=== PATIENT | male | born 1960 | race Caucasian/White ===

== ENCOUNTER 2019-12-28 12:25 | Emergency (ER) | payer MEDICARE ==
--- NOTE | 2019-12-28 12:47 | ERPHSYRPT ---
- History of Present Illness Time Seen by Provider: 12/28/19 12:47 Source: patient Exam Limitations: no limitations Patient Subjective Stated Complaint: pt co pain to left leg for a month off and on, worse in morning,pt has raised area above right ankle since yesterday, he is worried about a blood clot and has hx of dvt Triage Nursing Assessment: pt alert, walked in, resp easy, face mask in place, has discoloration to both lower legs and swelling which he states is normal Physician History: Is a 59-year-old obese white male who with a history of chronic venous stasis disease as well as history of deep venous thromboses and pulmonary emboli who presents with left lower extremity pain that has been present for approximately 3 days. Patient also has a history of peripheral vascular disease, COPD and type 2 diabetes. He is a chronic daily smoker of cigarettes. Patient is on Eliquis twice a day. Patient does not have any pain medication for this pain. Patient denies chest pain and he denies shortness of breath. She denies injury to his lower extremity on the left side. Method of Injury: other (No injury) Occurred: days ago (3) Quality: aching Severity of Pain-Max: moderate Severity of Pain-Current: moderate Modifying Factors: Improves With: movement Allergies/Adverse Reactions: No Known Drug Allergies Allergy (Verified 12/28/19 12:40) Home Medications: Albuterol Sulfate [Proair Hfa] 2 puffs IH QID 05/08/14 [History] Budesonide/Formoterol Fumarate [Symbicort 160-4.5 Mcg Inhaler] 2 puffs IH BID 05/08/14 [History] Albuterol 2.5 mg/3 ml Neb [Proventil 2.5 mg/3 ml Neb] 2.5 mg IH QIDPRN PRN 04/11/15 [History] Apixaban [Eliquis 5 mg Tablet] 5 mg PO BID 12/31/15 [History] Lacosamide [Vimpat] 100 mg PO BID 12/31/15 [History] Empagliflozin [Jardiance] 1 ea DAILY 12/28/19 [History] Famotidine [Pepcid] 1 ea DAILY 12/28/19 [History] PANTOPRAZOLE 40 mg Tablet [Protonix 40MG Tablet] 1 ea DAILY 12/28/19 [History] Rosuvastatin Calcium 1 ea DAILY 12/28/19 [History] Hx Influenza Vaccination/Date Given: No Hx Pneumococcal Vaccination/Date Given: No Immunizations Up to Date: Yes Travel Risk - International Travel Have you traveled outside of the country in past 3 weeks: No - Coronavirus Screening Are you exhibiting any of the following symptoms?: No Close contact with a COVID-19 positive Pt in past 14-21 Days: No - Review of Systems Constitutional: No Symptoms Eyes: No Symptoms Ears, Nose, & Throat: No Symptoms Respiratory: No Symptoms Cardiac: No Symptoms Abdominal/Gastrointestinal: No Symptoms Genitourinary Symptoms: No Symptoms Musculoskeletal: Other (Left lower extremity pain) Skin: Other (Pain medial aspect left lower extremity) Neurological: No Symptoms Psychological: No Symptoms Endocrine: No Symptoms Hematologic/Lymphatic: No Symptoms Immunological/Allergic: No Symptoms All Other Systems: Reviewed and Negative - Past Medical History Pertinent Past Medical History: Yes Neurological History: Seizures ENT History: No Pertinent History Cardiac History: Peripheral Vascular Disease Respiratory History: COPD Endocrine Medical History: Diabetes Type II Musculoskeletal History: Osteoarthritis GI Medical History: GERD, Hernia History: Other Psycho-Social History: No Pertinent History Male Reproductive Disorders: No Pertinent History Other Medical History: seizure disorders, coded during one seizure, blood clotting disorder - Past Surgical History Past Surgical History: Yes Neuro Surgical History: No Pertinent History Cardiac: No Pertinent History Respiratory: No Pertinent History Gastrointestinal: Hernia Repair Genitourinary: No Pertinent History Musculoskeletal: Orthopedic Surgery Male Surgical History: No Pertinent History Other Surgical History: spinal cord stimulator,simran knee surgery - arthroscopy. groin biopsy - Social History Smoking Status: Current every day smoker How long have you smoked: 20yrs Exposure to second hand smoke: Yes Drug Use: none Patient Lives Alone: No - Nursing Vital Signs Nursing Vital Signs: Pain Scale Pain Intensity 5 - Physical Exam General Appearance: mild distress, alert, anxiety, obese Eyes, Ears, Nose, Throat Exam: normal ENT inspection, moist mucous membranes Neck Exam: normal inspection, non-tender, supple, full range of motion Cardiovascular/Respiratory Exam: chest non-tender, normal breath sounds, regular rate/rhythm, heart sounds normal, no respiratory distress Gastrointestinal/Abdominal Exam: non-tender Back Exam: normal inspection, normal range of motion, No CVA tenderness, No vertebral tenderness Hips Exam: bilateral: non-tender, normal inspection, normal range of motion, no evidence of injury Legs Exam: right leg: non-tender, normal inspection, left leg: soft tissue tenderness (Patient has chronic venous stasis disease without ulceration. It is in the medial aspect of his left leg.), bilateral leg: normal range of motion, no evidence of injury Knees Exam: bilateral knee: non-tender, normal inspection, normal range of motion, no evidence of injury Ankle Exam: right ankle: normal range of motion, bilateral ankle: non-tender, normal inspection, no evidence of injury Foot Exam: bilateral foot: non-tender, normal inspection, normal range of motion, no evidence of injury Neuro/Tendon Exam: normal sensation, normal motor functions, normal tendon functions Mental Status Exam: alert, oriented x 3, cooperative Skin Exam: other (Chronic venous stasis disease skin changes bilateral lower extremities) SpO2 Interpretation: normal O2 Delivery: Room Air - Course Nursing assessment & vital signs reviewed: Yes Ordered Tests: Active Orders 24 hr Category Date Time Status VENOUS UNILAT/LIMITED EXTREMIT [US] Stat Exams 12/28/19 12:55 Completed - Progress Progress: unchanged, pain not gone completely, re-examined Counseled pt/family regarding: diagnosis, need for follow-up, rad results - Departure Departure Disposition: Home Clinical Impression: Pain in left lower leg Condition: Stable Critical Care Time: No Referrals: JERI HERNANDEZ [NON-STAFF PHY W/O PRIVILEGES] - Additional Instructions: Follow up with primary doctor for further management. take your medications as prescribed. Prescriptions: Hydrocodone/APAP 5/325 [[place] 5/325 mg] 1 each PO Q8H PRN PRN #6 tablet MDD 3 PRN Reason: Pain
--- NOTE | 2019-12-28 13:47 | XRAY ---
Indication: Left lower leg pain. Two-dimensional sonogram and color Doppler imaging of the major venous vessels of the left leg was performed. Comparison: November 29, 2015. Again no thrombus seen in the examined deep venous vessels of the left leg including greater saphenous vein. Veins demonstrate normal compressibility. Venous waveforms are normal with and without augmentation. Images of the calf demonstrates mild subcutaneous venous varicosities. Impression: Left leg remains negative for DVT. Superficial venous varicosities at the level of the calf.
[2019-12-28 14:27] VITALS: BP 95/58; PULSE 86; O2SAT 98
== END 2019-12-28 14:37 | disposition home or self-care (01) ==
LOC: ED 12:25
DX: M79.662 Pain in left lower leg (principal); I87.8 Other specified disorders of veins; Z86.718 Personal history of other venous thrombosis and embolism; Z86.711 Personal history of pulmonary embolism; Z79.01 Long term (current) use of anticoagulants; I73.9 Peripheral vascular disease, unspecified; J44.9 Chronic obstructive pulmonary disease, unspecified; E11.9 Type 2 diabetes mellitus without complications
CPT/HCPCS: 93971; 99283

== ENCOUNTER 2020-08-04 04:17 | Emergency (ER) | payer MEDICARE ==
[2020-08-04] MEDS ORDERED: NORCO 5/325 MG PO ONE (04:41)
[2020-08-04] MEDS ORDERED: Cyclobenzaprine 10 MG PO ONE (04:42)
[2020-08-04 04:43] VITALS: O2SAT 95
[2020-08-04] MEDS ORDERED: Cyclobenzaprine 10 MG ONE (04:45)
[2020-08-04] MEDS ORDERED: NORCO 5/325 MG ONE (04:46)
--- NOTE | 2020-08-04 05:00 | ERPHSYRPT ---
- History of Present Illness Time Seen by Provider: 08/04/20 04:41 Patient Subjective Stated Complaint: "I have a rash on my leg. It hurts!" Triage Nursing Assessment: Patient reported a four day onset of a "rash" to the lower medial aspect of the left leg. Reported worsening pain as the cause of seeking care. Denied recent injuries to the area. Denied noticing and drainage from the area. Pain described as sharp/stabbing and non-radiating without alleviating factors. Pupils 3mm. Peripheral pulses +2 bilateral. Lower extremities with significant skin changes. pedal pulses +2 bilateral. Area in questions in superior to the left medial malleolus. Non-weeping wound with slightly blanching center. [place] wound bed noted. Physician History: Patient is here with left lower leg wound. Appears to be venous stasis bilaterally. Left greater than worse. Has been going on for 2 to 3 days. States it was affecting his sleep. Allergies/Adverse Reactions: No Known Drug Allergies Allergy (Verified 08/04/20 04:23) Home Medications: Albuterol Sulfate [Proair Hfa] 2 puffs IH QID 05/08/14 [History] Budesonide/Formoterol Fumarate [Symbicort 160-4.5 Mcg Inhaler] 2 puffs IH BID 05/08/14 [History] Albuterol 2.5 mg/3 ml Neb [Proventil 2.5 mg/3 ml Neb] 2.5 mg IH QIDPRN PRN 04/11/15 [History] Apixaban [Eliquis 5 mg Tablet] 5 mg PO BID 12/31/15 [History] Lacosamide [Vimpat] 100 mg PO BID 12/31/15 [History] Empagliflozin [Jardiance] 1 ea DAILY 12/28/19 [History] Famotidine [Pepcid] 1 ea DAILY 12/28/19 [History] PANTOPRAZOLE 40 mg Tablet [Protonix 40MG Tablet] 1 ea DAILY 12/28/19 [History] Rosuvastatin Calcium 1 ea DAILY 12/28/19 [History] Hx Tetanus, Diphtheria Vaccination/Date Given: No Hx Influenza Vaccination/Date Given: No Hx Pneumococcal Vaccination/Date Given: No Travel Risk - International Travel Have you traveled outside of the country in past 3 weeks: No - Coronavirus Screening Are you exhibiting any of the following symptoms?: No Close contact with a COVID-19 positive Pt in past 14-21 Days: No - Vaccine Status Have you recieved a Covid-19 vaccination: No - Review of Systems Constitutional: No Fever, No Chills Eyes: No Symptoms Ears, Nose, & Throat: No Symptoms Respiratory: No Cough, No Dyspnea Cardiac: No Chest Pain, No Edema, No Syncope Abdominal/Gastrointestinal: No Abdominal Pain, No Nausea, No Vomiting, No Diarrhea Genitourinary Symptoms: No Dysuria Musculoskeletal: Other (Left lower leg wound.), No Back Pain, No Neck Pain Skin: No Rash Neurological: No Dizziness, No Focal Weakness, No Sensory Changes Psychological: No Symptoms Endocrine: No Symptoms All Other Systems: Reviewed and Negative - Past Medical History Pertinent Past Medical History: Yes Neurological History: Seizures ENT History: No Pertinent History Cardiac History: Peripheral Vascular Disease Respiratory History: COPD Endocrine Medical History: Diabetes Type II Musculoskeletal History: Osteoarthritis GI Medical History: GERD, Hernia History: Other Psycho-Social History: No Pertinent History Male Reproductive Disorders: No Pertinent History Other Medical History: seizure disorders, coded during one seizure, blood clotting disorder - Past Surgical History Past Surgical History: Yes Neuro Surgical History: No Pertinent History Cardiac: No Pertinent History Respiratory: No Pertinent History Gastrointestinal: Hernia Repair Genitourinary: No Pertinent History Musculoskeletal: Orthopedic Surgery Male Surgical History: No Pertinent History Other Surgical History: spinal cord stimulator,simran knee surgery - arthroscopy. groin biopsy - Social History Smoking Status: Current every day smoker How long have you smoked: 20yrs Exposure to second hand smoke: Yes Drug Use: none Patient Lives Alone: No - Nursing Vital Signs Nursing Vital Signs: Initial Vital Signs Temperature 98.4 F 08/04/20 04:17 Pulse Rate 78 08/04/20 04:17 Respiratory Rate 16 08/04/20 04:17 Blood Pressure 123/87 08/04/20 04:17 O2 Sat by Pulse Oximetry 95 08/04/20 04:17 Pain Scale Pain Intensity 10 - Physical Exam General Appearance: no apparent distress, alert Eye Exam: PERRL/EOMI, eyes nml inspection Ears, Nose, Throat Exam: normal ENT inspection, TMs normal, pharynx normal, moist mucous membranes Neck Exam: normal inspection, non-tender, supple, full range of motion Respiratory Exam: normal breath sounds, lungs clear, No respiratory distress Cardiovascular Exam: regular rate/rhythm, normal heart sounds, normal peripheral pulses Gastrointestinal/Abdomen Exam: soft, normal bowel sounds, No tenderness, No mass Back Exam: normal inspection, normal range of motion, No CVA tenderness, No vertebral tenderness Extremity Exam: normal inspection, normal range of motion, pelvis stable Neurologic Exam: alert, oriented x 3, cooperative, normal mood/affect, nml cerebellar function, nml station & gait, sensation nml, No motor deficits Skin Exam: normal color, warm, dry, No rash Lymphatic Exam: No adenopathy SpO2 Interpretation: normal SpO2: 95 Comments: 08/04/20 04:58 No obvious deformity, sensation intact, 2+ capillary refill, 2 point tactile discrimination intact. 5 out of 5 strength. Full range of motion without pain. Compartments are soft, nontender. Overlying skin shows no tenting, bruising, ecchymosis. Left lower leg venous stasis. Left worse than right. However it is bilateral. No obvious signs of infection. No signs of DVT. - Course Nursing assessment & vital signs reviewed: Yes Ordered Tests: Medication Summary Discontinued Medications Generic Name Dose Route Start Last Admin Trade Name Freq PRN Reason Stop Dose Admin Hydrocodone Bitart/Acetaminophen 2 tab 08/04/20 04:41 08/04/20 04:47 [place] 5/325 Mg PO 08/04/20 04:42 2 tab STAT ONE Administration Hydrocodone Bitart/Acetaminophen Confirm 08/04/20 04:46 [place] 5/325 Mg Administered 08/04/20 04:47 Dose 2 tab .ROUTE .STK-MED ONE Cyclobenzaprine HCl 10 mg 08/04/20 04:42 08/04/20 04:47 Cyclobenzaprine 10 Mg PO 08/04/20 04:43 10 mg STAT ONE Administration Cyclobenzaprine HCl Confirm 08/04/20 04:45 Cyclobenzaprine 10 Mg Administered 08/04/20 04:46 Dose 10 mg .ROUTE .STK-MED ONE - Progress Progress: improved Progress Note: 08/04/20 04:59 Patient does appear in pain today. Will give a oral [place], Flexeril here. Patient will need close follow-up with his PCP and podiatry. He was given follow-up with Dr. Calderon of podiatry. He feels improved with the pain medication here. No signs of infection at this point time. He should have continued tight control of his glucose. Counseled pt/family regarding: diagnosis, need for follow-up - Departure Departure Disposition: Home Clinical Impression: Venous stasis dermatitis of both lower extremities Condition: Stable Critical Care Time: No Referrals: ALIVIA DAVALOS [Primary Care Provider] - Instructions: Wound Care (DC) Additional Instructions: take home pain medications: tylenol and flexeril. Follow up with Dr. Claderon this next week for close reexam. Return for fever, chills, chest pain, vomiting, or any other new or different symptoms Prescriptions: Cyclobenzaprine HCl 10 mg [Flexeril 10 MG] 10 mg PO TID #12 tablet
[2020-08-04 05:41] VITALS: BP 140/82; PULSE 89
== END 2020-08-04 05:00 | disposition home or self-care (01) ==
LOC: ED 04:17
DX: I87.8 Other specified disorders of veins (principal); L30.9 Dermatitis, unspecified
CPT/HCPCS: 99283; A9270-GY

== ENCOUNTER 2020-12-20 15:41 | Emergency (ER) | payer MEDICARE ==
--- NOTE | 2020-12-20 16:01 | ERPHSYRPT ---
- History of Present Illness Time Seen by Provider: 12/20/20 16:01 Historian: patient Exam Limitations: no limitations Patient Subjective Stated Complaint: PT states "I have the most horrible heartburn I have ever had. My right chest and shoulder and back hurt really bad." Triage Nursing Assessment: Pt presented alert and oriented X 3, skin pwd Pt ambulates with an upright steady gait, able to speak in clear full sentences. Pt resting comfortably on the bed. Timing/Duration: today Activities at Onset: none Quality: burning Location: substernal Chest Pain Radiation: no radiation Severity of Pain-Max: moderate Severity of Pain-Current: moderate Modifying Factors: Improves With: nothing Associated Symptoms: denies symptoms Prior Chest Pain/Cardiac Workup: no prior chest pain Nitro Today/Relief: no nitro taken today Aspirin Treatment Today: no aspirin today Allergies/Adverse Reactions: No Known Drug Allergies Allergy (Verified 08/04/20 04:23) Home Medications: Albuterol Sulfate [Proair Hfa] 2 puffs IH QID 05/08/14 [History] Budesonide/Formoterol Fumarate [Symbicort 160-4.5 Mcg Inhaler] 2 puffs IH BID 05/08/14 [History] Albuterol 2.5 mg/3 ml Neb [Proventil 2.5 mg/3 ml Neb] 2.5 mg IH QIDPRN PRN 04/11/15 [History] Apixaban [Eliquis 5 mg Tablet] 5 mg PO BID 12/31/15 [History] Lacosamide [Vimpat] 100 mg PO BID 12/31/15 [History] Empagliflozin [Jardiance] 1 ea DAILY 12/28/19 [History] Famotidine [Pepcid] 1 ea DAILY 12/28/19 [History] PANTOPRAZOLE 40 mg Tablet [Protonix 40MG Tablet] 1 ea DAILY 12/28/19 [History] Rosuvastatin Calcium 1 ea DAILY 12/28/19 [History] Hx Tetanus, Diphtheria Vaccination/Date Given: No Hx Influenza Vaccination/Date Given: No Hx Pneumococcal Vaccination/Date Given: No Immunizations Up to Date: Yes Travel Risk - International Travel Have you traveled outside of the country in past 3 weeks: No - Coronavirus Screening Are you exhibiting any of the following symptoms?: No Close contact with a COVID-19 positive Pt in past 14-21 Days: No - Vaccine Status Have you recieved a Covid-19 vaccination: Yes [employer]: Moderna - Vaccination Dates Date of 2cond Vaccination (if applicable): 09/2020 - Review of Systems Constitutional: No Symptoms Eyes: No Symptoms Ears, Nose, & Throat: No Symptoms Respiratory: No Symptoms Cardiac: Chest Pain (GERD type) Abdominal/Gastrointestinal: Other (GERD) Genitourinary Symptoms: No Symptoms Musculoskeletal: No Symptoms Skin: No Symptoms Neurological: No Symptoms Psychological: No Symptoms Endocrine: No Symptoms Hematologic/Lymphatic: No Symptoms Immunological/Allergic: No Symptoms All Other Systems: Reviewed and Negative - Past Medical History Pertinent Past Medical History: Yes Neurological History: Seizures ENT History: No Pertinent History Cardiac History: Peripheral Vascular Disease Respiratory History: COPD Endocrine Medical History: Diabetes Type II Musculoskeletal History: Osteoarthritis GI Medical History: GERD, Hernia History: Other Psycho-Social History: No Pertinent History Male Reproductive Disorders: No Pertinent History Other Medical History: seizure disorders, coded during one seizure, blood clotting disorder - Past Surgical History Past Surgical History: Yes Neuro Surgical History: No Pertinent History Cardiac: No Pertinent History Respiratory: No Pertinent History Gastrointestinal: Hernia Repair Genitourinary: No Pertinent History Musculoskeletal: Orthopedic Surgery Male Surgical History: No Pertinent History Other Surgical History: spinal cord stimulator,simran knee surgery - arthroscopy. groin biopsy - Social History Smoking Status: Current every day smoker How long have you smoked: years Exposure to second hand smoke: Yes Drug Use: none Patient Lives Alone: No - Nursing Vital Signs Nursing Vital Signs: Initial Vital Signs Temperature 98.2 F 12/20/20 15:54 Pulse Rate 80 12/20/20 15:54 Respiratory Rate 20 12/20/20 15:54 Blood Pressure 107/83 12/20/20 15:54 O2 Sat by Pulse Oximetry 95 12/20/20 15:54 Pain Scale Pain Intensity 2 - Physical Exam General Appearance: no apparent distress, obese Eye Exam: PERRL/EOMI Ears, Nose, Throat Exam: normal ENT inspection Neck Exam: normal inspection, non-tender Respiratory Exam: normal breath sounds, airway intact Cardiovascular Exam: regular rate/rhythm, normal heart sounds Gastrointestinal/Abdomen Exam: soft, normal bowel sounds Rectal Exam: deferred Back Exam: normal inspection Extremity Exam: normal inspection Neurologic Exam: alert, oriented x 3, cooperative Skin Exam: normal color, warm SpO2 Interpretation: normal SpO2: 95 O2 Delivery: Room Air - Course EKG Interpreted by Me: RATE (82), Sinus Rhythm, NORMAL AXIS, NORMAL INTERVALS, NORMAL QRS, NORMAL ST-T - Radiology Exams Chest X-ray Interpretation: Interpreted by me, Negative Lab/Rad Data: Laboratory Result Diagrams 12/20/20 16:40 12/20/20 16:40 Laboratory Results 12/20/20 12/20/20 12/20/20 Range/Units 19:08 16:40 16:40 WBC (4.0-10.5) K/mm3 RBC (4.1-5.6) M/mm3 Hgb (12.5-18.0) gm/dl Hct (42-50) % MCV (78-100) fl MCH (26-32) pg MCHC (32-36) g/dl RDW (11.5-14.0) % Plt Count (150-450) K/mm3 MPV (7.5-11.0) fl Sodium 136 L (137-145) mmol/L Potassium 3.6 (3.5-5.1) mmol/L Chloride 100 (98-107) mmol/L Carbon Dioxide 25 (22-30) mmol/L Anion Gap 14.4 (5-15) MEQ/L BUN 13 (9-20) mg/dL Creatinine 0.82 (0.66-1.25) mg/dL Estimated GFR > 60.0 ML/MIN Glucose 158 H (74-106) mg/dL Calcium 9.2 (8.4-10.2) mg/dL Total Bilirubin 0.70 (0.2-1.3) mg/dL AST 23 (17-59) U/L ALT 15 (0-50) U/L Alkaline Phosphatase 92 (38-126) U/L Troponin I < 0.012 < 0.012 (0.000-0.034) ng/mL Serum Total Protein 7.2 (6.3-8.2) g/dL Albumin 4.0 (3.5-5.0) g/dL 12/20/20 Range/Units 16:40 WBC 8.9 (4.0-10.5) K/mm3 RBC 4.31 (4.1-5.6) M/mm3 Hgb 14.3 (12.5-18.0) gm/dl Hct 43.7 (42-50) % MCV 101.4 H (78-100) fl MCH 33.2 H (26-32) pg MCHC 32.7 (32-36) g/dl RDW 14.9 H (11.5-14.0) % Plt Count 222 (150-450) K/mm3 MPV 10.3 (7.5-11.0) fl Sodium (137-145) mmol/L Potassium (3.5-5.1) mmol/L Chloride (98-107) mmol/L Carbon Dioxide (22-30) mmol/L Anion Gap (5-15) MEQ/L BUN (9-20) mg/dL Creatinine (0.66-1.25) mg/dL Estimated GFR ML/MIN Glucose (74-106) mg/dL Calcium (8.4-10.2) mg/dL Total Bilirubin (0.2-1.3) mg/dL AST (17-59) U/L ALT (0-50) U/L Alkaline Phosphatase (38-126) U/L Troponin I (0.000-0.034) ng/mL Serum Total Protein (6.3-8.2) g/dL Albumin (3.5-5.0) g/dL - Progress Progress: improved Air Movement: good Progress Note: 12/26/20 16:04 GI cocktail helped. All pain gone Blood Culture(s) Obtained: No Antibiotics given: No Counseled pt/family regarding: lab results, diagnosis, need for follow-up, rad results - Departure Departure Disposition: Home Clinical Impression: Chronic GERD Condition: Stable Critical Care Time: No Referrals: ALIVIA DAVALOS [Primary Care Provider] - Additional Instructions: Antacids, see PCP
--- NOTE | 2020-12-20 16:41 | XRAY ---
Indication: Chest pain. Comparison: March 01, 2015. Portable chest is now clear. Heart not enlarged. Bony thorax intact again with epidural leads terminating T7. No new/acute findings.
[2020-12-20 17:04] LABS: Hematocrit 43.7 % (42-50); Hemoglobin 14.3 gm/dl (12.5-18.0); Mean Cell Volume 101.4 fl (78-100); Mean Corpuscular Hemoglobin 33.2 pg (26-32); Mean Corpuscular Hgb Concent. 32.7 g/dl (32-36); Mean Platelet Volume 10.3 fl (7.5-11.0); Platelet Count 222 K/mm3 (150-450); Red Blood Count 4.31 M/mm3 (4.1-5.6); Red Cell Distribution Width 14.9 % (11.5-14.0); White Blood Count 8.9 K/mm3 (4.0-10.5)
[2020-12-20 17:09] LABS: ALKALINE PHOSPHATASE 92 U/L (38-126); ANION GAP 14.4 MEQ/L (5-15); BLOOD UREA NITROGEN 13 mg/dL (9-20); CHLORIDE 100 mmol/L (98-107); Calcium 9.2 mg/dL (8.4-10.2); Carbon Dioxide 25 mmol/L (22-30); Creatinine 1 0.82 mg/dL (0.66-1.25); EST GLOMERULAR FILTRATION RATE > 60.0 ML/MIN; Glucose 158 mg/dL (74-106); Potassium 3.6 mmol/L (3.5-5.1); SGOT/AST 23 U/L (17-59); SGPT/ALT 15 U/L (0-50); SODIUM 136 mmol/L (137-145); Total Protein 7.2 g/dL (6.3-8.2)
[2020-12-20 18:23] VITALS: BP 110/66; PULSE 64
[2020-12-26 16:06] VITALS: O2SAT 95
== END 2020-12-21 07:43 | disposition home or self-care (01) ==
LOC: ED 15:41
DX: K21.9 Gastro-esophageal reflux disease without esophagitis (principal); Z79.899 Other long term (current) drug therapy; Z79.01 Long term (current) use of anticoagulants; R07.9 Chest pain, unspecified; E11.9 Type 2 diabetes mellitus without complications; J44.9 Chronic obstructive pulmonary disease, unspecified
CPT/HCPCS: 36000; 36415; 71045; 80053; 84484; 85027; 93005; 99284

== ENCOUNTER 2021-02-02 06:35 | Emergency (ER) | payer MEDICARE ==
[2021-02-02 06:54] VITALS: BP 129/85; PULSE 67; O2SAT 98
--- NOTE | 2021-02-02 07:21 | ERPHSYRPT ---
- History of Present Illness Time Seen by Provider: 02/02/21 07:00 Source: patient Exam Limitations: no limitations Patient Subjective Stated Complaint: "I have a rash." Triage Nursing Assessment: patient reported three day onset of rash to the left knee and bilateral forearms. He denied any new washes, detergent, or medications. Patient reported that he contacted his PCP Dr. Davalos who could not see him until . patient reported Dr. Davalos told him to go to the ER if he needed seen. Denied pain. Reported itching without exudate. The patient is very disheveled. Skin is dirty/warm/dry with macular rash distributed on the anterior aspect of the bilateral forearms, posterior hands, and anterior left knee. No noted exudate, erythema, or edema. Physician History: This a 60-year-old obese white male has a history of chronic venous stasis disease, diabetes, peripheral vascular disease and presents with a 3-day history of skin rash of his bilateral lower extremities and bilateral upper extremities. It itches and he has been scratching. Patient is taking Pepcid already. Patient denies any new exposures. Timing/Duration: day(s) (3) Quality: itchy Severity: mild (Moderate) Location: extremities (Bilateral upper and lower extremities) Possible Causes: other (Dry skin) Modifying Factors: Improves With: scratching Associated Symptoms: denies symptoms Allergies/Adverse Reactions: No Known Drug Allergies Allergy (Verified 02/02/21 06:39) Home Medications: Albuterol Sulfate [Proair Hfa] 2 puffs IH QID 05/08/14 [History] Budesonide/Formoterol Fumarate [Symbicort 160-4.5 Mcg Inhaler] 2 puffs IH BID 05/08/14 [History] Albuterol 2.5 mg/3 ml Neb [Proventil 2.5 mg/3 ml Neb] 2.5 mg IH QIDPRN PRN 04/11/15 [History] Apixaban [Eliquis 5 mg Tablet] 5 mg PO BID 12/31/15 [History] Lacosamide [Vimpat] 100 mg PO BID 12/31/15 [History] Empagliflozin [Jardiance] 1 ea DAILY 12/28/19 [History] Famotidine [Pepcid] 1 ea DAILY 12/28/19 [History] PANTOPRAZOLE 40 mg Tablet [Protonix 40MG Tablet] 1 ea DAILY 12/28/19 [History] Rosuvastatin Calcium 1 ea DAILY 12/28/19 [History] Hx Tetanus, Diphtheria Vaccination/Date Given: Yes Hx Influenza Vaccination/Date Given: Yes Hx Pneumococcal Vaccination/Date Given: No Travel Risk - International Travel Have you traveled outside of the country in past 3 weeks: No - Coronavirus Screening Are you exhibiting any of the following symptoms?: No Close contact with a COVID-19 positive Pt in past 14-21 Days: No - Vaccine Status Have you recieved a Covid-19 vaccination: Yes Law Clerk: Moderna - Vaccination Dates Date of 2cond Vaccination (if applicable): september - Review of Systems Constitutional: No Symptoms Eyes: No Symptoms Ears, Nose, & Throat: No Symptoms Respiratory: No Symptoms Cardiac: No Symptoms Abdominal/Gastrointestinal: No Symptoms Genitourinary Symptoms: No Symptoms Musculoskeletal: No Symptoms Skin: Rash (Bilateral upper extremities and bilateral lower extremities) Neurological: No Symptoms Psychological: No Symptoms Endocrine: No Symptoms Hematologic/Lymphatic: No Symptoms Immunological/Allergic: No Symptoms All Other Systems: Reviewed and Negative - Past Medical History Pertinent Past Medical History: Yes Neurological History: Seizures ENT History: No Pertinent History Cardiac History: Peripheral Vascular Disease Respiratory History: COPD Endocrine Medical History: Diabetes Type II Musculoskeletal History: Osteoarthritis GI Medical History: GERD, Hernia History: Other Psycho-Social History: No Pertinent History Male Reproductive Disorders: No Pertinent History Other Medical History: seizure disorders, coded during one seizure, blood clotting disorder - Past Surgical History Past Surgical History: Yes Neuro Surgical History: No Pertinent History Cardiac: No Pertinent History Respiratory: No Pertinent History Gastrointestinal: Hernia Repair Genitourinary: No Pertinent History Musculoskeletal: Orthopedic Surgery Male Surgical History: No Pertinent History Other Surgical History: spinal cord stimulator,simran knee surgery - arthroscopy. groin biopsy - Social History Smoking Status: Current every day smoker How long have you smoked: years Exposure to second hand smoke: Yes Drug Use: none Patient Lives Alone: No - Nursing Vital Signs Nursing Vital Signs: Initial Vital Signs Temperature 98.6 F 02/02/21 06:36 Pulse Rate 67 02/02/21 06:36 Respiratory Rate 18 02/02/21 06:36 Blood Pressure 129/85 02/02/21 06:36 O2 Sat by Pulse Oximetry 98 02/02/21 06:36 Pain Scale Pain Intensity 0 - Physical Exam General Appearance: no apparent distress, alert, anxiety, obese Eye Exam: PERRL/EOMI, eyes nml inspection Ears, Nose, Throat Exam: normal ENT inspection, moist mucous membranes Neck Exam: normal inspection, non-tender, supple, full range of motion Respiratory Exam: No chest tenderness, No respiratory distress Gastrointestinal/Abdomen Exam: No tenderness Rectal Exam: not done Back Exam: normal inspection, normal range of motion, No CVA tenderness, No vertebral tenderness Extremity Exam: other (Dry skin bilateral upper extremities and bilateral lower extremities. Patient has significant chronic venous stasis disease bilateral lower extremities. There is punctate rash bilateral upper extremities and bilateral lower extremities. No cellulitis or evidence of infection present.) Neurologic Exam: alert, oriented x 3, cooperative, group art supervisor II-XII nml as tested, normal mood/affect, nml cerebellar function, nml station & gait, sensation nml Skin Exam: dry, rash (See above extremity exam) Lymphatic Exam: No adenopathy SpO2 Interpretation: normal SpO2: 98 O2 Delivery: Room Air - Course Nursing assessment & vital signs reviewed: Yes - Progress Progress: unchanged Counseled pt/family regarding: diagnosis, need for follow-up - Departure Departure Disposition: Home Clinical Impression: Dermatitis Condition: Stable Critical Care Time: No Referrals: ALIVIA DAVALOS [Primary Care Provider] - Additional Instructions: Keep your skin of your bilateral upper and lower extremities moist with uns cented skin moisturizer. Continue taking your famotidine (Pepcid). Add Benadryl 25 mg orally 4 times a day for the next 4 days. Monitor your blood sugar and treat accordingly while taking your prednisone. Follow-up with your primary care physician for further management. Prescriptions: Prednisone 10 mg [Deltasone 10 mg] 10 mg PO TID #12 tablet
== END 2021-02-02 07:32 | disposition home or self-care (01) ==
LOC: ED 06:35
DX: L30.9 Dermatitis, unspecified (principal); E11.9 Type 2 diabetes mellitus without complications; D68.9 Coagulation defect, unspecified; J44.9 Chronic obstructive pulmonary disease, unspecified
CPT/HCPCS: 99283

== ENCOUNTER 2021-05-20 10:28 | Day surgery (SDC) | payer MEDICARE ==
--- NOTE | 2021-05-20 08:24 | HP ---
DATE OF SURGERY: 05/20/2021 HISTORY OF PRESENT ILLNESS: The patient is a 60-year-old who has a new hernia superior to the past hernia repair in the past. He has some incarcerated fat or preperitoneal fat. He is in need of repair. PAST MEDICAL HISTORY: Obesity. Seizure disorder. Arthritis. Chronic obstructive pulmonary disease. He had deep vein thrombosis in the past. Ventral hernia, superior hernia with omentum as well as a piece of nonobstructed transverse colon. PAST SURGICAL HISTORY: Previous repair of incarcerated ventral hernia five or six years ago. Hernia surgery and knee surgery in the past. Spine surgery. Benign lymph node removed in the past. MEDICATIONS: The last list of medications that the patient provided is: ProAir, Symbicort, Albuterol, Eliquis, morphine, furosemide, Keppra in the past. ALLERGIES: NKDA. FAMILY HISTORY: Lung cancer. Breast cancer. Leukemia. SOCIAL HISTORY: Former smoker, no current smoking. No alcohol abuse. REVIEW OF SYSTEMS: Fourteen systems reviewed per above. PHYSICAL EXAMINATION: GENERAL: No acute distress. HEENT: Sclerae nonicteric. NECK: No JVD. CHEST: Equal excursion, nonlabored breathing. CVS: Regular rate and rhythm. ABDOMEN: Soft, obese. He has a hernia above his prior repair that seems to be intact. Likely some incarcerated omentum or preperitoneal fat. No peritoneal signs. EXTREMITIES: No significant edema. NEURO: Alert, oriented, moving extremities symmetrically. PSYCH: Appropriate mood and affect. IMPRESSION: Incarcerated ventral hernia. The patient would benefit from repair. I recommend trying laparoscopic repair of incarcerated ventral hernia with mesh, possible open. General risk of bleeding or infection, risk of trocar injury or hernia, risk of bowel, bladder, blood vessel injury, risk of adhesion, scar formation or ileus. General risk of aches, pains, burning or numbness possible penitentiary or chronic in nature. Overall risk of hernia recurrence, risk of mesh infection possibly requiring removal, risk of hematoma or seroma formation, risk of mesh fracture or failure possibly creating issue with the viscera or other structures possibly requiring other procedures. General risk of anesthesia, deep venous thrombosis, pulmonary embolism, pneumonia, risk of cardiopulmonary event given his comorbidities. He understands and agrees to the planned procedure, will proceed with outpatient laparoscopic repair of incarcerated ventral hernia with mesh possible open.
[~2021-05-20 10:28] MED LIST: CEFAZOLIN 2 GM-D5W BAG** 2 GM/50 ML ML IV ONE; CEFAZOLIN 2 GM-D5W BAG** 2 GM/50 ML ML IV SCH; Lactated Ringers 1,000 ML IV ONE; Lactated Ringers 1,000 ML IV SCH; Sensorcaine 0.25% 10 ML ONE
[2021-05-20] MEDS ORDERED: Versed 2 MG/2 ML Injection IV PRN (11:27)
[2021-05-20] MEDS ORDERED: Reglan 10 MG/2 ML IV ONE (11:27)
[2021-05-20] MEDS ORDERED: Versed 2 MG/2 ML Injection ONE (11:32)
[2021-05-20] MEDS ORDERED: Reglan 10 MG/2 ML ONE (11:32)
[2021-05-20] MEDS ORDERED: DIPRIVAN 200 MG/20 ML IV ONE ×2 (11:39→14:18)
[2021-05-20] MEDS ORDERED: Zofran 4 MG/2 ML VIAL ONE (11:39)
[2021-05-20] MEDS ORDERED: Zemuron 100 MG/10 ML ONE (11:39)
[2021-05-20] MEDS ORDERED: Quelicin Fliptop 200 MG/10 ML ONE (11:39)
[2021-05-20] MEDS ORDERED: Decadron 4 MG INJ ONE (11:39)
[2021-05-20] MEDS ORDERED: Xylocaine-Mpf 2% 5 Ml Vial ONE (11:39)
[2021-05-20] MEDS ORDERED: Naropin 0.5% 30 ML VIAL ONE (11:47)
[2021-05-20] MEDS ORDERED: SUBLIMAZE 100 MCG/2 ML ONE ×3 (11:47→14:56)
[2021-05-20] MEDS ORDERED: EPINEPHRINE 1MG/ML AMP ONE (11:48)
[2021-05-20] MEDS ORDERED: Pre-Attached Lta Kit TP ONE (12:04)
[2021-05-20] MEDS ORDERED: Ephedrine Sulfate 50 MG/ML ONE (12:27)
[2021-05-20] MEDS ORDERED: Lactated Ringers 1,000 ML IV ONE (12:42)
[2021-05-20] MEDS ORDERED: BLOXIVERZ IV ONE (12:55)
[2021-05-20] MEDS ORDERED: PHENYLEPHRINE HCL ONE (12:55)
[2021-05-20] MEDS ORDERED: ROBINUL ONE (12:55)
[2021-05-20 16:42] VITALS: BP 146/58; PULSE 69; O2SAT 93
--- NOTE | 2021-05-21 12:11 | OP ---
SURGERY DATE/TIME: 05/20/2021 1209 PREOPERATIVE DIAGNOSIS: Incarcerated epigastric ventral hernia. POSTOPERATIVE DIAGNOSIS: Incarcerated epigastric ventral hernia. PROCEDURE: Laparoscopic-assisted incarcerated epigastric ventral hernia repaired with mesh. SURGEON: Dr. Julio Ko. ANESTHESIA: General. ESTIMATED BLOOD LOSS: Minimal. INDICATIONS: As noted above. Risks and benefits explained in detail and not limited to and consent obtained. The site was confirmed with the patient in the preoperative holding area. DESCRIPTION OF PROCEDURE AND FINDINGS: The patient is taken to the operating room. General anesthesia induced. Abdomen prepped and draped in usual sterile fashion. After official time out and no disagreement with planned procedure, a transverse incision made in the left upper quadrant. Fascia grasped pulled upwards. Veress needle inserted. Tested with saline. Pneumoperitoneum accomplished opening pressure 0 to 15. A 5 mm bladeless port and camera inserted without difficulty, followed by left lateral mid abdomen 5 mm port and left lower quadrant 5 mm port and later right mid abdomen 5 mm port. The patient has significant omental adhesions up to the anterior abdominal wall this took some time but it is slowly and carefully taken down off the old previous hernia repair inferiorly using LigaSure device. Good hemostasis noted. The old repair looked fine. The original hernia repair was intact and looked good. Given his obesity, he had a large amount of omentum as well as transverse colon up in this hernia this took some time but slowly and carefully lysing some thin, filmy adhesions slowly mobilized a large amount of fat out of this large hernia in the epigastrium slowly and carefully accomplished carefully protecting the transverse colon. A small, little piece of the omentum was removed. It was devitalized. Otherwise had some that had a little bit of chronic looked like saponification of the some of the omentum. Slowly and carefully again this took quite some time given the large amount of incarceration up in the hernia was carefully accomplished. At this point the sides of the defect were carefully measured. Once it was measured, it was felt the most appropriate size was [address] ECHO mesh was the most appropriate size to cover the defect. This mesh was tagged at four quadrants with 0 Ethibond and pulled up transfascially. At this point given his obesity and a very large hernia sac, it was felt it would be better to go ahead and remove the sac to minimize seroma formation or hematoma formation. Therefore, a small incision made over the hernia sac and it was carefully freed down to the fascia and discarded. Some interrupted #1 Prolene was used with the mesh carefully inserted in the abdomen with some interrupted 0 Prolene placed through this small incision to bring the true fascial defects back to the midline. The balloon catheter carefully pulled upward and inflated. The patient was then re-insufflated to a pressure of 8. In the four quadrants, 0 Ethibonds were pulled up and tied transfascially. It should be noted the inferior part of the mesh was overlapping on the patient's prior mesh that was well incorporated. Otherwise four quadrants of 0 Ethibonds were pulled up in nice flat, tension-free manner. The capture Tacker was intact about 1 cm apart around the periphery. SorbaFix used more centrally to reduce the risk of seroma formation. Mesh is lying nice and flat in tension free fashion. It looked excellent. The balloon catheter had been removed through a 5 mm port. It was removed intact and passed off. Port was replaced. Careful inspection of the colon and lysis of adhesions and reducing incarcerated omentum of colon looked good. There does not appear to be any technical issues with the colon at this time. Good hemostasis noted. No signs of any active bleeding. No signs of any visceral issues or injury. Mesh in good location at this point. Pneumoperitoneum decompressed. Ports removed. Skin incision closed with 4-0 Vicryl where the hernia sac had been discarded and some 3-0 Vicryl was used to tack the subcu back down to the level of fascia. The skin closed with 4-0 Vicryl. Steri-Strips and sterile dressing applied. The patient tolerated the procedure well. There were no immediate complications. Findings were discussed with the family out in the waiting area. Anesthesia is planning tap blocks. He was transferred to outpatient recovery and released home in good condition.
== END 2021-05-20 16:35 | disposition home or self-care (01) ==
LOC: SDC 10:28
PROVIDERS: ATTEND Surgery
DX: K43.6 Other and unspecified ventral hernia with obstruction, without gangrene (principal); E11.9 Type 2 diabetes mellitus without complications
CPT/HCPCS: 49653; 82947; C1781; 64488; 76942; 88302; J0171; J0330; J0690; J1100; J2250; J2370; J2405; J2704; J2710; J2795; J3010; L0625

== ENCOUNTER 2022-05-13 00:58 | Emergency (ER) | payer MEDICARE ==
[2022-05-13 02:21] VITALS: PULSE 74
[2022-05-13] MEDS ORDERED: TORAdol 30 mg Injection IM ONE (02:49)
--- NOTE | 2022-05-13 02:52 | ERPHSYRPT ---
- History of Present Illness Time Seen by Provider: 05/13/22 02:53 Source: patient Exam Limitations: no limitations Patient Subjective Stated Complaint: I hit my leg on the couch and a scabbed popped up on my leg, and it really hurts. Triage Nursing Assessment: pt ambulated into ER without diff, at bedside. Pt c/o scabbed areas (2) that are painful. Pt states, "I hit it on the couch a couple days ago and it's been hurting ever since". 2 scabbed areas to RLE are dry, scabbed and crusty, with scant amount of bleeding noted. Physician History: Patient 61-year-old male presents to our ED for evaluation of painful scabs to right anterior lower leg. Patient states he bumped into a couch couple days ago. Since then he is experiencing pain to the involved area. Pain described as an ache that is localized. No radiation. Pain worse with movement and palpation. Pain improved with rest. Negative Homans' sign. No chest pain or shortness of breath. Patient voices no other complaints or concerns at this t toby. Portions of this note were created with voice recognition technology. There may be grammatical, spelling, punctuation or sound alike errors Method of Injury: direct blow Occurred: days ago (2 days ago) Quality: constant Severity of Pain-Max: moderate Severity of Pain-Current: mild Lower Extremities Pain: leg: right Modifying Factors: Improves With: movement (Patient reproduces pain.) Associated Symptoms: none Allergies/Adverse Reactions: No Known Drug Allergies Allergy (Verified 05/13/22 01:53) Home Medications: Albuterol Sulfate [Proair Hfa] 2 puffs IH QID 05/08/14 [History] Albuterol 2.5 mg/3 ml Neb [Proventil 2.5 mg/3 ml Neb] 2.5 mg IH QIDPRN PRN 04/11/15 [History] Lacosamide [Vimpat] 200 mg PO BID 12/31/15 [History] Empagliflozin [Jardiance] 25 mg PO DAILY 12/28/19 [History] Famotidine [Pepcid] 1 ea PO QHS 12/28/19 [History] PANTOPRAZOLE 40 mg Tablet [Protonix 40MG Tablet] 1 ea PO DAILY 12/28/19 [History] Rosuvastatin Calcium 1 ea DAILY 12/28/19 [History] Betamethasone Valerate 1 applic TOP BID 05/07/21 [History] Diclofenac Sodium 1 applic TOP BID 05/07/21 [History] Fluticasone/Umeclidin/Vilanter [Trelegy Ellipta 100-62.5-25] 1 inh PO DAILY 05/07/21 [History] Pregabalin 1 cap PO BID 05/07/21 [History] Sitagliptin Phos/Metformin HCl [Janumet Xr 100-1,000 mg Tablet] 1 tab PO BID 05/07/21 [History] Tizanidine HCl 4 mg [Zanaflex 4 MG] 1 tab PO BID 05/07/21 [History] Hx Tetanus, Diphtheria Vaccination/Date Given: Yes Hx Influenza Vaccination/Date Given: Yes Hx Pneumococcal Vaccination/Date Given: No Immunizations Up to Date: Yes Travel Risk - International Travel Have you traveled outside of the country in past 3 weeks: No - Coronavirus Screening Are you exhibiting any of the following symptoms?: No Close contact with a COVID-19 positive Pt in past 14-21 Days: No - Vaccine Status Have you recieved a Covid-19 vaccination: Yes Junior Network Engineer: Moderna - Vaccination Dates Date of 2cond Vaccination (if applicable): . - Review of Systems Constitutional: No Symptoms, No Fever, No Chills Eyes: No Symptoms Ears, Nose, & Throat: No Symptoms Respiratory: No Symptoms, No Cough, No Dyspnea Cardiac: No Symptoms, No Chest Pain, No Edema, No Syncope Abdominal/Gastrointestinal: No Symptoms, No Abdominal Pain, No Nausea, No Vomiting, No Diarrhea Genitourinary Symptoms: No Symptoms, No Dysuria Musculoskeletal: No Symptoms, No Back Pain, No Neck Pain Skin: No Symptoms, No Rash Neurological: No Symptoms, No Dizziness, No Focal Weakness, No Sensory Changes Psychological: No Symptoms Endocrine: No Symptoms Hematologic/Lymphatic: No Symptoms Immunological/Allergic: No Symptoms All Other Systems: Reviewed and Negative - Past Medical History Pertinent Past Medical History: Yes Neurological History: Seizures ENT History: No Pertinent History Cardiac History: Deep Vein Thrombosis, Peripheral Vascular Disease Respiratory History: Asthma, Bronchitis, COPD Endocrine Medical History: Diabetes Type II Musculoskeletal History: Osteoarthritis GI Medical History: GERD, Hernia History: Other Psycho-Social History: No Pertinent History Male Reproductive Disorders: No Pertinent History Other Medical History: seizure disorders, coded during one seizure, blood clotting disorder - Past Surgical History Past Surgical History: Yes Neuro Surgical History: No Pertinent History Cardiac: No Pertinent History Respiratory: No Pertinent History Gastrointestinal: Hernia Repair Genitourinary: No Pertinent History Musculoskeletal: Orthopedic Surgery Male Surgical History: No Pertinent History Other Surgical History: spinal cord stimulator,simran knee surgery - arthroscopy. groin biopsy - Social History Smoking Status: Current every day smoker How long have you smoked: years Exposure to second hand smoke: No Drug Use: none Patient Lives Alone: No - Nursing Vital Signs Nursing Vital Signs: Initial Vital Signs Temperature 98.6 F 05/13/22 01:44 Pulse Rate 80 05/13/22 01:44 Respiratory Rate 22 05/13/22 01:44 Blood Pressure 139/77 05/13/22 01:44 O2 Sat by Pulse Oximetry 96 05/13/22 01:44 Pain Scale Pain Intensity 10 - Physical Exam General Appearance: no apparent distress, alert Eyes, Ears, Nose, Throat Exam: moist mucous membranes Neck Exam: non-tender, supple Cardiovascular/Respiratory Exam: chest non-tender, normal breath sounds, regular rate/rhythm, no respiratory distress Gastrointestinal/Abdominal Exam: non-tender, guarding Back Exam: normal inspection, No vertebral tenderness Hips Exam: bilateral: non-tender, normal inspection, normal range of motion, no evidence of injury Legs Exam: right leg: abrasions (Abrasion with visible scab. No lymphangitis. No cellulitis. No active drainage. The involved extremity is neurovascular intact distally. Compartments are soft. Cap refill less than 2 seconds.) Knees Exam: bilateral knee: non-tender, normal inspection, normal range of motion, no evidence of injury Ankle Exam: bilateral ankle: non-tender, normal inspection, normal range of motion, no evidence of injury Foot Exam: bilateral foot: non-tender, normal inspection, normal range of motion, no evidence of injury Neuro/Tendon Exam: normal sensation, normal motor functions Mental Status Exam: alert, oriented x 3, cooperative Skin Exam: normal color, warm, dry SpO2 Interpretation: normal SpO2: 93 O2 Delivery: Room Air - Course Nursing assessment & vital signs reviewed: Yes Ordered Tests: Medication Summary Discontinued Medications Generic Name Dose Route Start Last Admin Trade Name Freq PRN Reason Stop Dose Admin Ketorolac Tromethamine 30 mg 05/13/22 02:49 Ketorolac Tromethamine 30 Mg/Ml Inj IM 05/13/22 02:50 STAT ONE - Progress Progress: improved Progress Note: 05/13/22 02:57 Patient with a right anterior howe leg wound. No signs of infection. Patient referred to orthopedic/podiatry clinic for further evaluation and treatment. Patient received Toradol for pain control. Patient is a 61-year-old male presents to our ED for evaluation of scabs to right leg. Patient received Toradol for pain control. Presenting symptoms are moderate in intensity. Complexity of problem was mild to moderate. No specific testing ordered. Patient referred to orthopedic/podiatry clinic for further evaluation and treat ment. Patient agrees to see health sciences manager today for further evaluation and treatment. Level of EM service provided was low. Complexity of problem is low. Risks are low to moderate. Patient serves as an independent historian. Include the level of EM service provided min/straightforward, low, moderate, high, critical care Portions of this note were created with voice recognition technology. There may be grammatical, spelling, punctuation or sound alike errors Counseled pt/family regarding: diagnosis, need for follow-up - Departure Departure Disposition: Home Clinical Impression: Leg wound, right Condition: Stable Critical Care Time: No Referrals: ALIVIA DAVALOS [Primary Care Provider] - Follow up/PCP as directed Outpatient Orders: Ortho Referral Time Frame: 1 Day, Facility: [facility], Location: ORTHO CLINIC
[2022-05-13] MEDS ORDERED: TORAdol 30 mg Injection ONE (03:05)
[2022-05-13 03:16] VITALS: BP 124/72; O2SAT 96
== END 2022-05-13 03:14 | disposition home or self-care (01) ==
LOC: ED 00:58
DX: S80.811A Abrasion, right lower leg, initial encounter (principal); W22.03XA Walked into furniture, initial encounter; M79.661 Pain in right lower leg; E11.9 Type 2 diabetes mellitus without complications; Z79.84 Long term (current) use of oral hypoglycemic drugs; Z79.899 Other long term (current) drug therapy; Z72.0 Tobacco use
CPT/HCPCS: 96372; 99283; J1885

== ENCOUNTER 2023-01-02 22:56 | Emergency (ER) | payer MEDICARE ==
[2023-01-02 23:27] VITALS: RESP 18; TEMP 98.1; O2SAT 95
[2023-01-02] MEDS ORDERED: ATARAX 25 MG PO ONE (23:38)
[2023-01-02] MEDS ORDERED: BACIGUENT PACKET TP ONE (23:38)
[2023-01-02] MEDS ORDERED: NORCO 5/325 MG PO ONE (23:38)
[2023-01-02] MEDS ORDERED: BACIGUENT PACKET ONE (23:42)
[2023-01-02] MEDS ORDERED: ATARAX 25 MG ONE (23:43)
[2023-01-02] MEDS ORDERED: NORCO 5/325 MG ONE (23:43)
--- NOTE | 2023-01-02 23:48 | ERPHSYRPT ---
- History of Present Illness Time Seen by Provider: 01/02/23 23:11 Source: patient Exam Limitations: no limitations Patient Subjective Stated Complaint: pt states for last 2 days he has had intching and pain in the top of his lt foot and has been scratching it until it bleeds Triage Nursing Assessment: pt alert and oriented, answers questions approp. pt ambulates to room with slow steady gait noted. respirations nonlabored. skin warm and dry. lower legs and feet discolored- pt states is his normal. small areas to top of lt foot with no bleeding noted. Physician History: 62 years old male with a history of diabetes mellitus, GERD, hyperlipidemia, COPD, tobacco abuse, peripheral vascular disease presented to the ER with chief complaint of right foot skin abrasion. Patient reports chronic itching in the feet and legs and earlier rubbed it with abrasion on the right hand dorsum. Now causing burning sensation. Patient reports he cannot control itching. No other injury. Allergies/Adverse Reactions: No Known Drug Allergies Allergy (Verified 01/02/23 23:28) Home Medications: Albuterol Sulfate [Proair Hfa] 2 puffs IH QID 05/08/14 [History] Albuterol 2.5 mg/3 ml Neb [Proventil 2.5 mg/3 ml Neb] 2.5 mg IH QIDPRN PRN 04/11/15 [History] Lacosamide [Vimpat] 200 mg PO BID 12/31/15 [History] Empagliflozin [Jardiance] 25 mg PO DAILY 12/28/19 [History] Famotidine [Pepcid] 1 ea PO QHS 12/28/19 [History] PANTOPRAZOLE 40 mg Tablet [Protonix 40MG Tablet] 1 ea PO DAILY 12/28/19 [History] Rosuvastatin Calcium 1 ea DAILY 12/28/19 [History] Betamethasone Valerate 1 applic TOP BID 05/07/21 [History] Diclofenac Sodium 1 applic TOP BID 05/07/21 [History] Fluticasone/Umeclidin/Vilanter [Trelegy Ellipta 100-62.5-25] 1 inh PO DAILY 05/07/21 [History] Pregabalin 1 cap PO BID 05/07/21 [History] Sitagliptin Phos/Metformin HCl [Janumet Xr 100-1,000 mg Tablet] 1 tab PO BID 05/07/21 [History] Tizanidine HCl 4 mg [Zanaflex 4 MG] 1 tab PO BID 05/07/21 [History] Hx Tetanus, Diphtheria Vaccination/Date Given: Yes Hx Influenza Vaccination/Date Given: Yes Hx Pneumococcal Vaccination/Date Given: Yes Immunizations Up to Date: Yes Travel Risk - International Travel Have you traveled outside of the country in past 3 weeks: No - Coronavirus Screening Are you exhibiting any of the following symptoms?: No Close contact with a COVID-19 positive Pt in past 14-21 Days: No - Vaccine Status Have you recieved a Covid-19 vaccination: Yes 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 - Vaccination Dates Date of 2cond Vaccination (if applicable): 2020 - Review of Systems Constitutional: No Symptoms Ears, Nose, & Throat: No Symptoms Respiratory: No Symptoms Cardiac: No Symptoms Musculoskeletal: Injury Skin: Skin Lesions Neurological: No Symptoms Immunological/Allergic: No Symptoms - Past Medical History Pertinent Past Medical History: Yes Neurological History: Seizures ENT History: No Pertinent History Cardiac History: Deep Vein Thrombosis, Peripheral Vascular Disease Respiratory History: Asthma, Bronchitis, COPD Endocrine Medical History: Diabetes Type II Musculoskeletal History: Osteoarthritis GI Medical History: GERD, Hernia History: Other Psycho-Social History: No Pertinent History Male Reproductive Disorders: No Pertinent History Other Medical History: seizure disorders, coded during one seizure, blood clotting disorder - Past Surgical History Past Surgical History: Yes Neuro Surgical History: No Pertinent History Cardiac: No Pertinent History Respiratory: No Pertinent History Gastrointestinal: Hernia Repair Genitourinary: No Pertinent History Musculoskeletal: Orthopedic Surgery Male Surgical History: No Pertinent History Other Surgical History: spinal cord stimulator,simran knee surgery - arthroscopy. groin biopsy, hernia surgery x3 - Social History Smoking Status: Current every day smoker How long have you smoked: years Exposure to second hand smoke: No Drug Use: none Patient Lives Alone: No - Nursing Vital Signs Nursing Vital Signs: Initial Vital Signs Temperature 98.1 F 01/02/23 23:14 Pulse Rate 85 01/02/23 23:14 Respiratory Rate 18 01/02/23 23:14 Blood Pressure 107/68 01/02/23 23:14 O2 Sat by Pulse Oximetry 95 01/02/23 23:14 Pain Scale Pain Intensity 8 - Physical Exam General Appearance: no apparent distress Ears, Nose, Throat Exam: normal ENT inspection Neck Exam: normal inspection, non-tender, supple, full range of motion Respiratory Exam: normal breath sounds, lungs clear Cardiovascular Exam: regular rate/rhythm, normal heart sounds Neurologic Exam: alert, oriented x 3, cooperative Skin Exam: abrasion (Right foot dorsum abrasion. Mild tenderness to touch.) SpO2 Interpretation: normal SpO2: 95 O2 Delivery: Room Air Ordered Tests: Medication Summary Discontinued Medications Generic Name Dose Route Start Last Admin Trade Name Stacy PRN Reason Stop Dose Admin Hydrocodone Bitart/Acetaminophen 2 tab 01/02/23 23:38 01/02/23 23:45 Hydrocodone/Apap 5/325 1 Tab Tablet PO 01/02/23 23:39 2 tab STAT ONE Administration Hydrocodone Bitart/Acetaminophen Confirm 01/02/23 23:43 Hydrocodone/Apap 5/325 1 Tab Tablet Administered 01/02/23 23:44 Dose 2 tab .ROUTE .STK-MED ONE Bacitracin Zinc 0.9 each 01/02/23 23:38 01/02/23 23:44 Bacitracin Packet 1 Each Pckt TP 01/02/23 23:39 0.9 each STAT ONE Administration Bacitracin Zinc Confirm 01/02/23 23:42 Bacitracin Packet 1 Each Pckt Administered 01/02/23 23:43 Dose 1 each .ROUTE .STK-MED ONE Hydroxyzine HCl 25 mg 01/02/23 23:38 01/02/23 23:45 Hydroxyzine Hcl 25 Mg Tablet PO 01/02/23 23:39 25 mg STAT ONE Administration Hydroxyzine HCl Confirm 01/02/23 23:43 Hydroxyzine Hcl 25 Mg Tablet Administered 01/02/23 23:44 Dose 25 mg .ROUTE .STK-MED ONE - Progress Progress: improved Progress Note: 01/02/23 23:50 62 years old male with a history of diabetes mellitus, GERD, hyperlipidemia, COPD, tobacco abuse, peripheral vascular disease presented to the ER with chief complaint of right foot skin abrasion. Patient reports chronic itching in the feet and legs and earlier rubbed it with abrasion on the right hand dorsum. Now causing burning sensation. Patient reports he cannot control itching. No other injury. He has abrasion right foot dorsum. Patient has poor circulation, given topical bacitracin, symptomatic treatment for pain and outpatient follow-up. Counseled pt/family regarding: diagnosis, need for follow-up Medical Desision Making - Risk of complications The pt has a mod risk of morbidity or mortality based on: Need for prescription drug management - Departure Departure Disposition: Home Clinical Impression: Foot abrasion, Peripheral vascular disease Condition: Stable Critical Care Time: No Referrals: ALIVIA DAVALOS [Primary Care Provider] - Follow up with PCP 2 days Instructions: Cellulitis (Skin Infection), Adult (DC) Additional Instructions: Keep it clean and dry. Follow-up with primary care for reevaluation. Return to ER for increased pain swelling redness, fever chills etc. Prescriptions: Hydroxyzine HCl 25 mg [Atarax 25 mg] 25 mg PO Q8H PRN 5 Days #12 tablet PRN Reason: Itching Bacitracin [Bacitraycin Plus] 28 gm TP TID 5 Days #28 gum
[2023-01-03 00:07] VITALS: BP 110/59; PULSE 83
== END 2023-01-03 00:18 | disposition home or self-care (01) ==
LOC: ED 22:56
DX: S90.811A Abrasion, right foot, initial encounter (principal); I73.9 Peripheral vascular disease, unspecified; L29.9 Pruritus, unspecified; E11.9 Type 2 diabetes mellitus without complications; E78.5 Hyperlipidemia, unspecified; Z79.84 Long term (current) use of oral hypoglycemic drugs; Z79.899 Other long term (current) drug therapy; Z72.0 Tobacco use
CPT/HCPCS: 99282; A9270-GY

== ENCOUNTER 2024-03-23 17:20 | Emergency (ER) | payer MEDICARE, OTHER ==
[2024-03-23 17:56] VITALS: RESP 18; TEMP 98.2; O2SAT 98
--- NOTE | 2024-03-23 18:15 | ERPHSYRPT ---
- History of Present Illness Time Seen by Provider: 03/23/24 17:57 Source: patient Exam Limitations: no limitations Patient Subjective Stated Complaint: Pt states "I was taking my stockings off and some dried skin came off with it and now my leg hurts where the skin came o ff." Triage Nursing Assessment: Pt presented alert and oriented X 3 skin pwd. PT ambulates with a slow gait. PT left lower leg has abrasion noted to howe with slight blood weeping. Physician History: 63 years old morbidly obese male with history of diabetes mellitus, hypertension, chronic venous stasis presented in the ER with complaints of left lower leg area of redness and increased sensitivity to touch/pain. Patient reports 3 days ago he was taking off his compression stocking and accidentally dry skin came off with exposing raw area. Patient reports moderate to severe sharp pain and noted some swelling around. Denies any fever or chills. No swelling of the calf but what he has at his baseline. Patient has a patch of square almost 4 x 4 inches with increase sensitivity and partially scabbed. Tender to touch. Mild increased temperature. I believe patient is developing some element of cellulitis and I will treat him with Keflex. Patient is on Eliquis and is low risk for DVT. No bony tenderness. Given [place] for symptomatic relief here and couple of pills to go home. Outpatient follow-up recommended. Discussed signs symptoms of worsening needing return to ER which he seems understanding. Stable for discharge. Allergies/Adverse Reactions: No Known Drug Allergies Allergy (Verified 01/02/23 23:28) Home Medications: Albuterol Sulfate [Proair Hfa] 2 puffs IH QID 05/08/14 [History] Albuterol 2.5 mg/3 ml Neb [Proventil 2.5 mg/3 ml Neb] 2.5 mg IH QIDPRN PRN 04/11/15 [History] Lacosamide [Vimpat] 200 mg PO BID 12/31/15 [History] Empagliflozin [Jardiance] 25 mg PO DAILY 12/28/19 [History] Famotidine [Pepcid] 1 ea PO QHS 12/28/19 [History] PANTOPRAZOLE 40 mg Tablet [Protonix 40MG Tablet] 1 ea PO DAILY 12/28/19 [History] Rosuvastatin Calcium 1 ea DAILY 12/28/19 [History] Betamethasone Valerate 1 applic TOP BID 05/07/21 [History] Diclofenac Sodium 1 applic TOP BID 05/07/21 [History] Fluticasone/Umeclidin/Vilanter [Trelegy Ellipta 100-62.5-25] 1 inh PO DAILY 05/07/21 [History] Pregabalin 1 cap PO BID 05/07/21 [History] Sitagliptin Phos/Metformin HCl [Janumet Xr 100-1,000 mg Tablet] 1 tab PO BID 05/07/21 [History] Tizanidine HCl 4 mg [Zanaflex 4 MG] 1 tab PO BID 05/07/21 [History] Hx Tetanus, Diphtheria Vaccination/Date Given: Yes Hx Influenza Vaccination/Date Given: Yes Hx Pneumococcal Vaccination/Date Given: Yes Immunizations Up to Date: No Travel Risk - International Travel Have you traveled outside of the country in past 3 weeks: No - Emerging Infectious Disease Are you exhibiting symptoms associated with any current EIDs: No - Review of Systems Constitutional: No Symptoms Ears, Nose, & Throat: No Symptoms Respiratory: No Symptoms Cardiac: Edema Abdominal/Gastrointestinal: No Symptoms Musculoskeletal: Injury Skin: Rash, Skin Lesions Neurological: No Symptoms Endocrine: No Symptoms - Past Medical History Pertinent Past Medical History: Yes Neurological History: Seizures ENT History: No Pertinent History Cardiac History: Deep Vein Thrombosis, Peripheral Vascular Disease Respiratory History: Asthma, Bronchitis, COPD Endocrine Medical History: Diabetes Type II Musculoskeletal History: Osteoarthritis GI Medical History: GERD, Hernia History: Other Psycho-Social History: No Pertinent History Male Reproductive Disorders: No Pertinent History Other Medical History: seizure disorders, coded during one seizure, blood clotting disorder - Past Surgical History Past Surgical History: Yes Neuro Surgical History: No Pertinent History Cardiac: No Pertinent History Respiratory: No Pertinent History Gastrointestinal: Hernia Repair Genitourinary: No Pertinent History Musculoskeletal: Orthopedic Surgery Male Surgical History: No Pertinent History Other Surgical History: spinal cord stimulator,simran knee surgery - arthroscopy. groin biopsy, hernia surgery x3 - Social History Smoking Status: Current every day smoker How long have you smoked: years Exposure to second hand smoke: No Drug Use: none Patient Lives Alone: No - Social Determinants of Health Will the patient participate in the screening: Declined to provide - Nursing Vital Signs Nursing Vital Signs: Initial Vital Signs Temperature 98.2 F 03/23/24 17:52 Pulse Rate 78 03/23/24 17:52 Respiratory Rate 18 03/23/24 17:52 Blood Pressure 147/102 03/23/24 17:52 O2 Sat by Pulse Oximetry 98 03/23/24 17:52 Pain Scale Pain Intensity 8 - Physical Exam General Appearance: no apparent distress Eye Exam: eyes nml inspection Neck Exam: normal inspection, full range of motion Respiratory Exam: normal breath sounds, lungs clear Cardiovascular Exam: regular rate/rhythm, normal heart sounds Extremity Exam: swelling, tenderness Neurologic Exam: alert, oriented x 3, cooperative Skin Exam: normal color SpO2 Interpretation: normal SpO2: 98 O2 Delivery: Room Air Ordered Tests: Medication Summary Discontinued Medications Generic Name Dose Route Start Last Admin Trade Name Josq PRN Reason Stop Dose Admin Hydrocodone Bitart/Acetaminophen 1 tab 03/23/24 18:07 Hydrocodone/Apap 5/325 1 Tab Tablet PO 03/23/24 18:08 STAT ONE Cephalexin HCl 500 mg 03/23/24 18:07 Cephalexin Mh500 Mg Capsule PO 03/23/24 18:08 STAT ONE - Progress Progress Note: 03/23/24 18:14 63 years old morbidly obese male with history of diabetes mellitus, hypertension, chronic venous stasis presented in the ER with complaints of left lower leg area of redness and increased sensitivity to touch/pain. Patient reports 3 days ago he was taking off his compression stocking and accidentally dry skin came off with exposing raw area. Patient reports moderate to severe sharp pain and noted some swelling around. Denies any fever or chills. No swelling of the calf but what he has at his baseline. Patient has a patch of square almost 4 x 4 inches with increase sensitivity and partially scabbed. Tender to touch. Mild increased temperature. I believe patient is developing some element of cellulitis and I will treat him with Keflex. Patient is on Eliquis and is low risk for DVT. No bony tenderness. Given [place] for symptomatic relief here and couple of pills to go home. Outpatient follow-up recommended. Discussed signs symptoms of worsening needing return to ER which he seems understanding. Stable for discharge. Counseled pt/family regarding: diagnosis, need for follow-up Medical Desision Making - Independent Historian Additional History obtained from: Spouse - Diagnostic Testing Diagnostic test were ordered, analyzed, and reviewed by me: No - Risk of complications The pt has a mod risk of morbidity or mortality based on: Need for prescription drug management - Departure Departure Disposition: Home Clinical Impression: Cellulitis, leg Condition: Stable Critical Care Time: No Referrals: ALIVIA DAVALOS [Primary Care Provider] - Follow up with PCP 1 day Instructions: Cellulitis (Skin Infection), Adult ED Additional Instructions: Take Tylenol as needed. Continue with your other pain medications at home. Follow-up with primary care for reevaluation. Use compression stocking. Keep it clean and elevated. Return to ER for increased swelling redness or if develop fever chills/worsening pain. Prescriptions: Cephalexin Mh 500 mg [Keflex 500 mg] 500 mg PO TID #21 cap
[2024-03-23] MEDS ORDERED: KEFLEX 500 MG ONE (18:21)
[2024-03-23] MEDS ORDERED: NORCO 5/325 MG ONE ×2 (18:21→18:38)
[2024-03-23] MEDS: KEFLEX 500 MG PO ONE (18:23)
[2024-03-23] MEDS: NORCO 5/325 MG PO ONE ×2 (18:24→18:41)
[2024-03-23 18:30] VITALS: BP 135/87; PULSE 75
== END 2024-03-23 18:48 | disposition home or self-care (01) ==
LOC: ED 17:20
DX: L03.116 Cellulitis of left lower limb (principal); Z79.899 Other long term (current) drug therapy; Z79.01 Long term (current) use of anticoagulants
CPT/HCPCS: 99282; A9270-GY